=== PATIENT | female | born 1980 | race American Indian/Alaskan Native ===

== ENCOUNTER 2017-12-31 20:11 | Emergency (ER) | payer BC ==
[2017-12-31 20:42] VITALS: BP 115/78
[2017-12-31] MEDS ORDERED: BOOSTRIX IM ONE (21:08)
--- NOTE | 2017-12-31 21:27 | Emergency Department Report ---
HPI - General Chief Complaint: Wound/Laceration Time Seen by Provider: 12/31/17 21:20 - HPI HPI: Patient fell today and landed on the table, complaining of left forearm laceration about 2 cm superficial. Bleeding has since stopped. She doesn't remember less time she had a tetanus booster. Likely need one today. No wrist pain or elbow pain no shoulder pain. No LOC did not hit head. ED Past Medical Hx - Past Medical History Previous Medical History?: No - Surgical History Past Surgical History?: No - Medications Home Medications: Home Medications Medication Instructions Recorded Confirmed Last Taken Type Neomycin/Bacitracin/Polymyxinb 70.8 gm TP BID #15 oint...g. 12/31/17 Unknown Rx [Neosporin Antibiotic Ointment] ED Review of Systems ROS: Stated complaint: LAC TO LT FOREARM Other details as noted in HPI Comment: All other systems reviewed and negative Gastrointestinal: as per HPI Genitourinary: as per HPI Skin: other (laceration) Physical Exam - Physical Exam Vital Signs: Vital Signs 12/31/17 20:41 Temperature 98.8 F Pulse Rate 90 Respiratory 16 Rate Blood Pressure 115/78 O2 Sat by Pulse 100 Oximetry Physical Exam: Gen. alert and oriented 3 in no distress Head atraumatic normocephalic Eyes PERR LA EOMI Chest regular rate and rhythm normal S1-S2 lungs clear bilaterally Abdomen soft nondistended Back no point tenderness paravertebral tenderness Neuro no focal deficit. Psych normal mood. Skin: Mid forearm 2 cm superficial laceration. ED Course Vital Signs 12/31/17 20:41 Temperature 98.8 F Pulse Rate 90 Respiratory 16 Rate Blood Pressure 115/78 O2 Sat by Pulse 100 Oximetry - Reevaluation(s) Reevaluation #1: 12/31/17 21:24 Left forearm laceration easily repaired with Dermabond. Patient tolerated procedure well. Critical care attestation.: If time is entered above; I have spent that time in minutes in the direct care of this critically ill patient, excluding procedure time. ED Disposition Clinical Impression: Laceration Disposition: DC-01 TO HOME OR SELFCARE Is pt being admited?: No Does the pt Need Aspirin: No Condition: Stable Instructions: Laceration (ED) Prescriptions: Neomycin/Bacitracin/Polymyxinb [Neosporin Antibiotic Ointment] 70.8 gm TP BID # 15 oint...g.
== END 2017-12-31 21:37 | disposition home or self-care (01) ==
LOC: ED 20:11
DX: S51.812A Laceration without foreign body of left forearm, initial encounter (principal); W18.09XA Striking against other object with subsequent fall, initial encounter; Y93.89 Activity, other specified; Y99.8 Other external cause status; Y92.89 Other specified places as the place of occurrence of the external cause
CPT/HCPCS: 90471; 90715

== ENCOUNTER 2019-04-12 13:56 | Emergency (ER) | payer BC ==
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
[2019-04-12 14:10] VITALS: BP 109/77
--- NOTE | 2019-04-12 16:31 | XRay Report ---
PROCEDURE: XR SPINE LUMBOSACRAL 2-3V TECHNIQUE: Frontal and lateral views lumbar spine and coned down lateral view lumbosacral junction HISTORY: low back pain COMPARISONS: None FINDINGS: Bony alignment is normal. The vertebral heights are maintained. There is loss of height of the L5-S1 disc with associated degenerative endplate change and osteophyte formation. The paraspinous soft tissues are unremarkable. IMPRESSION: 1. Evidence of degenerative disc and endplate change L5-S1 level. If further imaging is required, MRI may be helpful. This document is electronically signed by Nicol Choudhury MD., April 12 2019 05:29:42 PM ET
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
== END 2019-04-12 17:12 | disposition home or self-care (01) ==
LOC: ED 13:56
DX: S39.012A Strain of muscle, fascia and tendon of lower back, initial encounter (principal); E66.01 Morbid (severe) obesity due to excess calories; V49.49XA Driver injured in collision with other motor vehicles in traffic accident, initial encounter; Y93.89 Activity, other specified; Y92.488 Other paved roadways as the place of occurrence of the external cause; Y99.8 Other external cause status
CPT/HCPCS: 72100; 99283